=== PATIENT | male | born 1980 | race Hispanic/Latino ===

== ENCOUNTER 2020-07-19 09:12 | Emergency (ER) | payer OTHER ==
[2020-07-19] MEDS ORDERED: ONDANSETRON 4 MG/2 ML VIAL ONE ×2 (10:05→11:38)
[2020-07-19] MEDS ORDERED: NA CHLORIDE 0.9% 1,000 ML ONE (10:06)
[2020-07-19] MEDS ORDERED: KETOROLAC 30 MG/ML INJ ONE (10:06)
[2020-07-19 10:08] LABS: Absolute Lymphocytes (CBC) 0.7 K/uL (0.7-4.9); Basophils % 0.1 % (0-1.3); Lymphocytes % 6.3 % (15.3-44.8); MPV 8.3 fL (7.6-11.3); RBC Red Blood Cell Count 5.19 M/uL (4.33-5.43)
[2020-07-19 10:21] LABS: ALT/SGPT 35 U/L (12-78); AST/SGOT 16 U/L (15-37); Albumin 3.8 g/dL (3.4-5.0); Alkaline Phosphatase 68 U/L (45-117); BUN Blood Urea Nitrogen 15 mg/dL (7-18); Bicarbonate 26 mmol/L (21-32); Bilirubin Direct < 0.1 mg/dL (0-0.2); Bilirubin Total 0.3 mg/dL (0.2-1.0); Glucose Level 124 mg/dL (74-106); Lipase 74 U/L (73-393); Potassium 4.2 mmol/L (3.5-5.1); Protein, Total 8.1 g/dL (6.4-8.2); Sodium Level 137 mmol/L (136-145)
[2020-07-19 10:32] LABS: Blood Morphology Comment NOT SEEN (NOT SEEN); Platelet Estimate ADEQ
--- NOTE | 2020-07-19 10:56 | RAD REPORT ---
EXAM DESCRIPTION: CTAbdomen Pelvis W Contrast - 07/19/2020 10:46 am CLINICAL HISTORY: Abdominal pain. ABD PAIN COMPARISON: No comparisons TECHNIQUE: Biphasic CT imaging of the abdomen and pelvis was performed with 100 ml non-ionic IV cont rast. All CT scans are performed using dose optimization technique as appropriate and may include automated exposure control or mA/KV adjustment according to patient size. FINDINGS: The lung bases are clear. The liver demonstrates diffuse fatty infiltration. The spleen, pancreas, adrenal glands and kidneys a re within normal limits. Cholecystectomy clips. No bowel obstruction, free air, free fluid or abscess. The appendix is normal. No evidence of signi ficant lymphadenopathy. No suspicious bony findings. IMPRESSION: No acute intra-abdominal or pelvic finding. Mild diffuse fatty liver.
--- NOTE | 2020-07-19 11:01 | ER ---
Nurse's Notes [facility] Name: Jalil Patterson Age: 40 yrs Sex: Male : 1980 Arrival Date: 07/19/2020 Time: 09:15 Bed 14 Private MD: Diagnosis: Generalized abdominal pain;Diarrhea, unspecified;Nausea Presentation: 07/19 09:26 Chief complaint: Patient states: Abd. pain with nausea and diarrhea since 5 am. No ll1 fever. States he thinks its something he ate, pizza for supper last night. Coronavirus screen: Client denies travel out of the [place] in the last 14 days. diarrhea, nausea, Client presents with at least one sign or symptom that may indicate coronavirus-19. Standard/surgical mask placed on the client. Ebola Screen: Patient denies travel to an Ebola-affected area in the 21 days before illness onset. Initial Sepsis Screen: Does the patient meet any 2 criteria? HR > 90 bpm. No. Patient's initial sepsis screen is negative. Does the patient have a suspected source of infection? Yes: Acute abdominal pain. Risk Assessment: Do you want to hurt yourself or someone else? Patient reports no desire to harm self or others. Onset of symptoms was July 19, 2020. 09:26 Method Of Arrival: Ambulatory ll1 09:26 Acuity: JOHN 3 ll1 Historical: - Allergies: 09:28 PENICILLINS; ll1 - PMHx: 09:28 None; ll1 - PSHx: 09:28 None; ll1 - Immunization history:: Flu vaccine is up to date. - Social history:: Smoking status: Patient denies any tobacco usage or history of. Screenin:22 Abuse screen: Denies threats or abuse. Denies injuries from another. Nutritional ph screening: No deficits noted. Tuberculosis screening: No symptoms or risk factors identified. Fall Risk None identified. Assessment: 09:52 General: Appears in no apparent distress. uncomfortable, obese, well groomed, Behavior ph is calm, cooperative, appropriate for age, Reports chills for 0-12 hours. Pain: Complains of pain in umbilical area, right lower quadrant and left lower quadrant. Neuro: Level of Consciousness is awake, alert, obeys commands, Oriented to person, place, time, situation. Cardiovascular: Capillary refill < 3 seconds in bilateral fingers Patient's skin is warm and dry. Respiratory: Airway is patent Respiratory effort is even, unlabored. GI: Abdomen is round Reports lower abdominal pain, diarrhea, nausea. Derm: Skin is intact, Skin is pink, warm \T\ dry. Musculoskeletal: Circulation, motion, and sensation intact. Range of motion: intact in all extremities. Vital Signs: 09:26 BP 118 / 80; Pulse 100; Resp 17; Temp 99.0; Pulse Ox 100% on R/A; Weight 122.47 kg; ll1 Height 5 ft. 11 in. (180.34 cm); Pain 8/10; 09:53 BP 110 / 73; Pulse 100; Resp 18; Pulse Ox 95% on R/A; ph 09:26 Body Mass Index 37.66 (122.47 kg, 180.34 cm) ll1 ED Course: 09:15 Patient arrived in ED. am2 09:20 Jackie Zavaleta RN is Primary Nurse. ph 09:21 Frieda Soliz FNP-C is PHCP. kb 09:21 Jaret Villalobos MD is Attending Physician. kb 09:22 Arm band placed on Patient placed in an exam room, on a stretcher. ph 09:22 Patient has correct armband on for positive identification. Bed in low position. Call ph light in reach. Side rails up X 1. Pulse ox on. NIBP on. Door closed. Noise minimized. Warm blanket given. 09:27 Triage completed. ll1 09:45 Inserted saline lock: 22 gauge in right antecubital area, using aseptic technique. ph Blood collected. IV discontinued, intact, bleeding controlled, No redness/swelling at site. Pressure dressing applied. 10:47 CT Abd/Pelvis - IV Contrast Only In Process Unspecified. EDMS 11:32 No provider procedures requiring assistance completed. ph Administered Medications: 09:48 Drug: NS 0.9% 1000 ml Route: IV; Rate: 1000 ml; Site: right antecubital; ph 11:15 Follow up: Response: No adverse reaction; IV Status: Completed infusion; IV Intake: ph 1000ml 09:48 Drug: Zofran (Ondansetron) 4 mg Route: IVP; Site: right antecubital; ph 10:15 Follow up: Response: No adverse reaction ph 09:50 Drug: TORadol - (ketorolac) 15 mg Route: IVP; Site: right antecubital; ph 10:15 Follow up: Response: No adverse reaction ph 11:25 Drug: Bentyl (dicyclomine) 20 mg Route: PO; ph 11:30 Follow up: Response: No adverse reaction ph 11:25 Drug: Zofran (Ondansetron) 4 mg Route: IVP; Site: right antecubital; ph 11:30 Follow up: Response: No adverse reaction ph Intake: 11:15 IV: 1000ml; Total: 1000ml. ph Outcome: 11:00 Discharge ordered by . kb 11:34 Patient left the ED. ph 11:34 Discharged to home ambulatory, with significant other. ph 11:34 Condition: good 11:34 Discharge instructions given to patient, Instructed on discharge instructions, follow up and referral plans. medication usage, Demonstrated understanding of instructions, follow-up care, medications, Prescriptions given X 2. Signatures: Dispatcher [employer] EDMS Frieda Soliz, ALEXXC JOSELYN-Jackie Garcia RN RN Diana Rodriguez [facility] Candelaria Saul RN RN ll1 Corrections: (The following items were deleted from the chart) 11:29 11:20 Bentyl (dicyclomine) 20 mg PO ph ph
--- NOTE | 2020-07-19 11:01 | EDPHYS ---
Physician Documentation [facility] Name: Jalil Patterson Age: 40 yrs Sex: Male : 1980 Arrival Date: 07/19/2020 Time: 09:15 Bed 14 Private MD: ED Physician Jaret Villalobos HPI: 07/19 09:53 This 40 yrs old Male presents to ER via Ambulatory with complaints of kb Abdominal Pain, Nausea, Diarrhea. 09:53 The patient presents with abdominal pain that is diffuse. Onset: The symptoms/episode kb began/occurred this morning, at 05:00. The symptoms do not radiate. Associated signs and symptoms: Pertinent positives: diarrhea, nausea, Pertinent negatives: fever, vomiting. The symptoms are described as constant. Modifying factors: The symptoms are alleviated by nothing, the symptoms are aggravated by nothing. Severity of pain: At its worst the pain was moderate in the emergency department the pain is unchanged. The patient has not experienced similar symptoms in the past. The patient has not recently seen a physician. Pt states he woke up at 0500 with abd pain, nausea and diarrhea. States he believes he ate something bad yesterday. Denies vomiting or fever. . Historical: - Allergies: 09:28 PENICILLINS; ll1 - PMHx: 09:28 None; ll1 - PSHx: 09:28 None; ll1 - Immunization history:: Flu vaccine is up to date. - Social history:: Smoking status: Patient denies any tobacco usage or history of. ROS: 09:51 Constitutional: Negative for fever, chills, and weight loss. kb 09:51 Abdomen/GI: Positive for abdominal pain, nausea, diarrhea, Negative for vomiting, constipation. 09:51 All other systems are negative. Exam: 09:51 Constitutional: This is a well developed, well nourished patient who is awake, alert, kb and in no acute distress. Head/Face: Normocephalic, atraumatic. ENT: Moist Mucous membranes Cardiovascular: Regular rate and rhythm with a normal S1 and S2. No gallops, murmurs, or rubs. No pulse deficits. Respiratory: Respirations even and unlabored. No increased work of breathing, no retractions or nasal flaring. Skin: Warm, dry with normal turgor. Normal color. MS/ Extremity: Pulses equal, no cyanosis. Neurovascular intact. Full, normal range of motion. Neuro: Awake and alert, GCS 15, oriented to person, place, time, and situation. Moves all extremities. Normal gait. Psych: Awake, alert, with orientation to person, place and time. Behavior, mood, and affect are within normal limits. 09:51 Respiratory: Breath sounds: are clear throughout. 09:51 Abdomen/GI: Inspection: abdomen appears normal, Bowel sounds: normal, in all quadrants, Palpation: soft, in all quadrants, mild abdominal tenderness, in all quadrants. Vital Signs: 09:26 BP 118 / 80; Pulse 100; Resp 17; Temp 99.0; Pulse Ox 100% on R/A; Weight 122.47 kg; ll1 Height 5 ft. 11 in. (180.34 cm); Pain 8/10; 09:53 BP 110 / 73; Pulse 100; Resp 18; Pulse Ox 95% on R/A; ph 09:26 Body Mass Index 37.66 (122.47 kg, 180.34 cm) ll1 MDM: 09:21 Patient medically screened. kb 09:50 Data reviewed: vital signs, nurses notes. Data interpreted: Pulse oximetry: on room air kb is 100 %. Interpretation: normal. 10:58 Counseling: I had a detailed discussion with the patient and/or guardian regarding: the kb historical points, exam findings, and any diagnostic results supporting the discharge/admit diagnosis, lab results, radiology results, the need for outpatient follow up, a family practitioner, to return to the emergency department if symptoms worsen or persist or if there are any questions or concerns that arise at home. 07/19 09:25 Order name: Basic Metabolic Panel; Complete Time: 10:30 kb 07/19 09:25 Order name: CBC with Diff; Complete Time: 10:33 kb 07/19 09:25 Order name: Hepatic Function; Complete Time: 10:30 kb 07/19 09:25 Order name: Lipase; Complete Time: 10:30 kb 07/19 10:30 Order name: CT Abd/Pelvis - IV Contrast Only; Complete Time: 10:58 kb 07/19 10:32 Order name: Manual Differential; Complete Time: 10:33 EDMS 07/19 09:25 Order name: IV Saline Lock; Complete Time: 09:50 kb 07/19 09:25 Order name: Labs collected and sent; Complete Time: 09:50 kb Administered Medications: 09:48 Drug: NS 0.9% 1000 ml Route: IV; Rate: 1000 ml; Site: right antecubital; ph 11:15 Follow up: Response: No adverse reaction; IV Status: Completed infusion; IV Intake: ph 1000ml 09:48 Drug: Zofran (Ondansetron) 4 mg Route: IVP; Site: right antecubital; ph 10:15 Follow up: Response: No adverse reaction ph 09:50 Drug: TORadol - (ketorolac) 15 mg Route: IVP; Site: right antecubital; ph 10:15 Follow up: Response: No adverse reaction ph 11:25 Drug: Bentyl (dicyclomine) 20 mg Route: PO; ph 11:30 Follow up: Response: No adverse reaction ph 11:25 Drug: Zofran (Ondansetron) 4 mg Route: IVP; Site: right antecubital; ph 11:30 Follow up: Response: No adverse reaction ph Disposition: 13:23 Co-signature as Attending Physician, Jaret Villalobos MD. rn Disposition: 07/19/20 11:00 Discharged to Home. Impression: Generalized abdominal pain, Diarrhea, unspecified, Nausea. - Condition is Stable. - Discharge Instructions: Viral Gastroenteritis, Adult, [id number]. - Prescriptions for Bentyl 20 mg Oral Tablet - take 1 tablet by ORAL route every 6 hours As needed; 20 tablet. Zofran 4 mg Oral Tablet - take 1 tablet by ORAL route every 6 hours As needed; 20 tablet. - Medication Reconciliation Form, Thank You Letter, Antibiotic Education, Prescription Opioid Use form. - Follow up: Emergency Department; When: As needed; Reason: Worsening of condition. Follow up: Private Physician; When: 2 - 3 days; Reason: Recheck today's complaints, Continuance of care, Re-evaluation by your physician. Signatures: Dispatcher [employer] Frieda Davila, HOME DAY CARE PROVIDER-C HOME DAY CARE PROVIDER-Jaret Graham MD MD rn Hall, Patricia, RN RN ph Lewis, Lynsay, RN RN ll1 Corrections: (The following items were deleted from the chart) 11:34 11:00 07/19/2020 11:00 Discharged to Home. Impression: Generalized abdominal pain; ph Diarrhea, unspecified; Nausea. Condition is Stable. Discharge Instructions: Viral Gastroenteritis, Adult, [id number]. Prescriptions for Bentyl 20 mg Oral Tablet - take 1 tablet by ORAL route every 6 hours As needed; 20 tablet, Zofran 4 mg Oral Tablet - take 1 tablet by ORAL route every 6 hours As needed; 20 tablet. and Forms are Medication Reconciliation Form, Thank You Letter, Antibiotic Education, Prescription Opioid Use. Follow up: Emergency Department; When: As needed; Reason: Worsening of condition. Follow up: Private Physician; When: 2 - 3 days; Reason: Recheck today's complaints, Continuance of care, Re-evaluation by your physician. kb
[2020-07-19] MEDS ORDERED: DICYCLOMINE HCL 10 MG CAP ONE (11:39)
[2020-07-19 11:40] VITALS: TEMP 99
[2020-07-19 11:41] VITALS: BP 110/73; O2SAT 95
== END 2020-07-19 11:34 | disposition home or self-care (01) ==
LOC: ER 09:12
DX: R19.7 Diarrhea, unspecified (principal); R11.0 Nausea; Z88.0 Allergy status to penicillin
CPT/HCPCS: 85025; 80048; 36415; 80076; 83690; 74177; Q9967; J7030; J2405 ×2; 96361; 96374; 96375; 99284